=== PATIENT | female | born 1980 | race African-American/Black ===

== ENCOUNTER 2019-04-18 17:32 | Inpatient (IN) ==
[2019-04-18] MEDS ORDERED: SODIUM CHLORIDE 0.9% 1,000 ML IV STA ×2 (18:54→18:57)
[2019-04-18] MEDS ORDERED: INSULIN REGULAR 100 UNIT/ML IV STA (18:57)
[2019-04-18] MEDS ORDERED: INSULIN REGULAR DRIP 100 ML IV PRN (18:58)
[2019-04-18 19:13] LABS: Basophils # 0.2 10*3/uL (0.0-0.2); Basophils % 1.2 % (0.0-0.8); Hemoglobin 15.2 GM/DL (12.0-16.0); Immature Granulocytes % 7.6 %; Immature Granulocytes Absolute 1.55 #; Lymphocytes # 2.9 10*3/uL (1.4-4.0); Mean Corpuscular HGB Conc 31.7 GM/DL (32-36); NRBC # 0.03 10*3/uL; Neutrophils % 68.2 % (38.7-73.9); Platelet Count 383 T/CUMM (130-400); Red Blood Count 4.85 MC/CUMM (3.8-5.5); Red Cell Distribution Width 11.9 % (9.3-17.3); White Blood Count 20.4 T/CUMM (4-12)
[2019-04-18 19:33] LABS: Band Neutrophils 2 % (0-10); Lymphocytes 14 % (20-55); Platelet Estimate Normal; Segmented Neutrophils 75 % (50-85); Total Cells Counted 100
[2019-04-18 19:42] LABS: Albumin 3.9 G/DL (3.4-5.0); Bilirubin,Total 0.9 MG/DL (0.2-1.0); Calcium 8.4 MG/DL (8.5-10.1); Osmolality,Calculated 278.7 MOS/KG (273-304); Total Protein 8.7 G/DL (6.4-8.3)
[2019-04-18] MEDS ORDERED: CEFEPIME 2,000 MG in SODIUM CHLORIDE 0.9% 100 ML IV STA (19:42)
[2019-04-18] MEDS ORDERED: VANCOMYCIN INJ 1,000 MG in SODIUM CHLORIDE 0.9% 250 ML IV STA (19:43)
[2019-04-18] MEDS ORDERED: hydrALAZINE 20 MG/1 ML VIAL IV PRN (19:56)
[2019-04-18] MEDS ORDERED: SODIUM BICARBONATE 50 MEQ/50 ML VIAL IV STA (19:59)
[2019-04-18 20:21] LABS: VBG Oxygen Saturation 94.7 %; VBG PO2 99.5 MMHG (17-40)
[2019-04-18 20:22] LABS: VBG Base Excess -34.5 MEQ/L (0-4); VBG HCO3 4.6 MEQ/L (24-28); VBG PH 6.78
[2019-04-18] MEDS ORDERED: SODIUM BICARBONATE 10 MEQ/10 ML SYRINGE IV ONE (20:37)
[2019-04-18] MEDS ORDERED: CEFEPIME 2,000 MG VIAL ONE (20:44)
[2019-04-18 20:45] LABS: Apearance,Urine Slightly Hazy (Clear); Bacteria,Urine Occasional /HPF (Few); Bilirubin,Urine Negative (Negative); Blood, Urine Moderate mg/dL (Negative); Glucose,Urine (UA) >=500 mg/dL (Negative); Ketones,Urine 80 mg/dL (Negative); Mucus,Urine Occasional /LPF (Occasional); Nitrite,Urine Negative (Negative); Protein,Urine 100 MG/DL; RBC,Urine 2 /HPF (0-4); Squamous Epithelial Cell,Urine Occasional /HPF (0-10); Urine Color Straw (Yellow); Urine Specific Gravity 1.017 (1.001-1.035); Urine Urobilinogen < 2.0 EU/DL (0.2-1.0); WBC,Urine 3 /HPF (0-6)
[2019-04-18] MEDS ORDERED: SODIUM CHLORIDE 0.9% 100 ML IV ONE (20:45)
[2019-04-18] MEDS ORDERED: MAGNESIUM SULF RIDER 4 GM in PREMIX 1 EACH IV PRN (21:01)
[2019-04-18] MEDS ORDERED: SODIUM CHLORIDE 0.9% IV PRN (21:01)
[2019-04-18] MEDS ORDERED: SODIUM CHLORIDE 0.9% 1,000 ML IV ONE (21:01)
[2019-04-18] MEDS ORDERED: DEXTROSE 50% 25 GM/50 ML VIAL IV PRN ×2 (21:01)
[2019-04-18] MEDS ORDERED: SODIUM PHOSPHATE IV PRN (21:01)
[2019-04-18] MEDS ORDERED: SODIUM BICARB INJ 100 MEQ in STERILE WATER INJ 400 ML IV PRN (21:01)
[2019-04-18 21:02] LABS: Barbiturates Screen,Urine Negative (Negative); Benzodiazepines Screen,Urine Negative (Negative); Cannabinoid Screen,Urine Negative (Negative); Opiate Screen,Urine Negative (Negative); Phencyclidine Screen,Urine Negative (Negative)
[2019-04-18] MEDS: INSULIN REGULAR DRIP 100 ML IV SCH (21:28)
[2019-04-18] MEDS: cefTRIAXone 1,000 MG in SYRINGE 1 EACH IV SCH (21:40)
[2019-04-18 21:42] LABS: Allen Test Positive; Pt O2 Delivery Device Room Air
[2019-04-18 21:47] LABS: ABG HCO3 1.5 MMOL/L (20-26); ABG Oxygen Saturation 98.8 % (95-100); ABG PO2 161.6 MM HG (80-95); ABG TCO2 1.8 MMOL/L (23-27)
[2019-04-18 21:48] LABS: ABG Base Excess -32.4 MMOL/L (-2.5-2.5)
[2019-04-18 21:52] LABS: ABG PCO2 10.7 MM HG (35-48); ABG PH 6.884 (7.35-7.45)
[2019-04-18] MEDS: ENOXAPARIN 40 MG/0.4 ML SYRINGE SUBCUT SCH (21:55)
[2019-04-18] MEDS ORDERED: DEXTROSE 5% NACL 0.9% 1,000 ML IV SCH (22:35)
[2019-04-18] MEDS ORDERED: SODIUM BICARBONATE 50 MEQ/50 ML VIAL IV ONE (22:46)
[2019-04-18 23:21] LABS: Allen Test Positive; Pt O2 Delivery Device Room Air
[2019-04-18 23:22] LABS: ABG Base Excess -26.5 MMOL/L (-2.5-2.5); ABG HCO3 2.5 MMOL/L (20-26); ABG Oxygen Saturation 98.5 % (95-100); ABG TCO2 2.8 MMOL/L (23-27)
[2019-04-18 23:28] LABS: ABG PCO2 9.8 MM HG (35-48); ABG PH 7.018 (7.35-7.45)
[2019-04-18 23:37] LABS: Basophils # 0.2 10*3/uL (0.0-0.2); Basophils % 0.8 % (0.0-0.8); Eosinophils % 0.1 % (0.00-10.9); Hematocrit 40.7 VOL% (35.7-47.0); Hemoglobin 12.9 GM/DL (12.0-16.0); Immature Granulocytes % 8.1 %; Immature Granulocytes Absolute 1.63 #; Lymphocytes # 2.2 10*3/uL (1.4-4.0); Lymphocytes % 10.8 % (21.3-54.2); Mean Corpuscular HGB Conc 31.7 GM/DL (32-36); Mean Corpuscular Volume 97.4 FL (87-102); Mean Platelet Volume 10.7 FL (9.6-12.0); Monocytes % 10.3 % (1.7-12.7); NRBC # 0.03 10*3/uL; Neutrophils % 69.9 % (38.7-73.9); Platelet Count 301 T/CUMM (130-400); Red Blood Count 4.18 MC/CUMM (3.8-5.5); Red Cell Distribution Width 11.9 % (9.3-17.3); White Blood Count 20.2 T/CUMM (4-12)
[2019-04-18 23:49] LABS: Calcium 7.2 MG/DL (8.5-10.1)
[2019-04-19] MEDS: SODIUM CHLORIDE 0.9% 1,000 ML IV SCH ×2 (00:08→02:08)
[2019-04-19] MEDS ORDERED: DEXTROSE 5% NACL 0.9% 1,000 ML IV SCH (00:35)
[2019-04-19] MEDS ORDERED: SODIUM CHLORIDE 0.9% 1,000 ML IV SCH (00:39)
[2019-04-19 01:08] LABS: ABG Base Excess -28.4 MMOL/L (-2.5-2.5); ABG HCO3 6.3 MMOL/L (20-26); ABG Oxygen Saturation 98.5 % (95-100); Allen Test Positive; Pt O2 Delivery Device Room Air
[2019-04-19 01:10] LABS: ABG TCO2 12.1 MMOL/L (23-27)
[2019-04-19 01:12] LABS: ABG PCO2 12.1 MM HG (35-48); ABG PH 7.013 (7.35-7.45)
[2019-04-19 01:16] LABS: Calcium 7.3 MG/DL (8.5-10.1); Osmolality,Calculated 293.7 MOS/KG (273-304)
[2019-04-19] MEDS: POTASSIUM CHLORIDE RIDER 10 MEQ in PREMIX 1 EACH IV PRN ×6 (02:13→18:20)
[2019-04-19 02:56] LABS: Band Neutrophils 4 % (0-10); Lymphocytes 9 % (20-55); Metamyelocytes 3 %; Myelocytes 2 %; Segmented Neutrophils 74 % (50-85); Total Cells Counted 100
[2019-04-19 02:57] LABS: Platelet Estimate Normal
[2019-04-19 05:17] LABS: Basophils # 0.1 10*3/uL (0.0-0.2); Basophils % 0.5 % (0.0-0.8); Hematocrit 39.2 VOL% (35.7-47.0); Hemoglobin 12.8 GM/DL (12.0-16.0); Immature Granulocytes % 5.1 %; Immature Granulocytes Absolute 0.92 #; Lymphocytes # 1.7 10*3/uL (1.4-4.0); Lymphocytes % 9.6 % (21.3-54.2); Mean Corpuscular HGB Conc 32.7 GM/DL (32-36); Mean Corpuscular Volume 95.1 FL (87-102); Mean Platelet Volume 10.4 FL (9.6-12.0); Monocytes % 11.6 % (1.7-12.7); NRBC # 0.02 10*3/uL; Neutrophils % 73.2 % (38.7-73.9); Platelet Count 278 T/CUMM (130-400); Red Blood Count 4.12 MC/CUMM (3.8-5.5); Red Cell Distribution Width 11.9 % (9.3-17.3); White Blood Count 18.1 T/CUMM (4-12)
[2019-04-19 05:51] LABS: Band Neutrophils 6 % (0-10); Lymphocytes 13 % (20-55); Risk Ratio 5.28; Segmented Neutrophils 79 % (50-85); Total Cells Counted 100; VLDL CHOLESTEROL 58.4 MG/DL
[2019-04-19 05:52] LABS: Polychromasia Slight
[2019-04-19 05:54] LABS: Microcytosis Slight
[2019-04-19 06:45] LABS: Calcium 7.3 MG/DL (8.5-10.1); Osmolality,Calculated 288.4 MOS/KG (273-304)
[2019-04-19] MEDS: DEXT 5% NACL 0.45% KCL 20 MEQ 20 MEQ/1,000 ML BAG IV SCH ×2 (07:21→11:08)
[2019-04-19 09:49] LABS: Calcium 7.7 MG/DL (8.5-10.1); Osmolality,Calculated 293.1 MOS/KG (273-304)
[2019-04-19] MEDS ORDERED: INSULIN REGULAR 100 UNIT/ML ONE (09:50)
[2019-04-19] MEDS: INSULIN REGULAR DRIP 100 ML IV SCH ×3 (09:56→21:03)
[2019-04-19] MEDS: MAGNESIUM SULF RIDER 2 GM in PREMIX 1 EACH IV PRN (10:27)
[2019-04-19] MEDS ORDERED: SODIUM BICARBONATE 50 MEQ/50 ML VIAL IV ONE (10:30)
[2019-04-19] MEDS ORDERED: ONDANSETRON 4 MG/2 ML VIAL ONE (10:33)
[2019-04-19] MEDS: ONDANSETRON 4 MG/2 ML VIAL IV PRN (10:50)
[2019-04-19] MEDS ORDERED: POTASSIUM PHOSPHATE 30 MMOL in SODIUM CHLORIDE 0.9% 250 ML IV ONE (12:00)
[2019-04-19] MEDS ORDERED: SODIUM CHLORIDE 0.45% 1,000 ML IV SCH (12:39)
[2019-04-19 13:50] LABS: Calcium 7.8 MG/DL (8.5-10.1); Osmolality,Calculated 292.1 MOS/KG (273-304)
[2019-04-19] MEDS: SODIUM BICARB INJ 100 MEQ in DEXTROSE 5% 1,000 ML IV SCH ×2 (14:03→22:50)
[2019-04-19] MEDS ORDERED: PROMETHAZINE INJ 25 MG in SODIUM CHLORIDE 0.9% 50 ML IV PRN (15:56)
[2019-04-19] MEDS: cefTRIAXone 1,000 MG in SYRINGE 1 EACH IV SCH (21:46)
[2019-04-19] MEDS: ENOXAPARIN 40 MG/0.4 ML SYRINGE SUBCUT SCH (21:48)
[2019-04-19] MEDS ORDERED: POTASSIUM CHLORIDE INJ 30 MEQ in SODIUM CHLORIDE 0.9% 285 ML IV PRN (22:00)
[2019-04-19 22:41] LABS: Calcium 8.2 MG/DL (8.5-10.1); Osmolality,Calculated 293.7 MOS/KG (273-304)
[2019-04-19 23:23] LABS: Apearance,Urine CLOUDY (Clear); Bilirubin,Urine Negative (Negative); Blood, Urine Moderate mg/dL (Negative); Glucose,Urine (UA) 50 mg/dL (Negative); Granular Casts,Urine 14 /LPF (0-1); Ketones,Urine 20 mg/dL (Negative); Mucus,Urine Occasional /LPF (Occasional); Nitrite,Urine Negative (Negative); Protein,Urine 30 MG/DL; RBC,Urine 10 /HPF (0-4); Squamous Epithelial Cell,Urine Occasional /HPF (0-10); Urine Color Yellow (Yellow); Urine Specific Gravity 1.009 (1.001-1.035); Urine Urobilinogen < 2.0 EU/DL (0.2-1.0); WBC,Urine 4 /HPF (0-6)
[2019-04-20 01:29] LABS: Calcium 8.1 MG/DL (8.5-10.1); Osmolality,Calculated 294.8 MOS/KG (273-304)
[2019-04-20] MEDS ORDERED: POTASSIUM CHLORIDE INJ 40 MEQ in SODIUM CHLORIDE 0.9% 380 ML IV PRN (02:45)
[2019-04-20] MEDS: SODIUM BICARB INJ 100 MEQ in DEXTROSE 5% 1,000 ML IV SCH ×3 (02:53→14:28)
[2019-04-20] MEDS: INSULIN REGULAR DRIP 100 ML IV SCH ×3 (03:37→23:38)
[2019-04-20 05:38] LABS: Basophils % 0.2 % (0.0-0.8); Eosinophils # 0.1 10*3/uL (0.0-0.87); Eosinophils % 1.1 % (0.00-10.9); Hematocrit 30.6 VOL% (35.7-47.0); Hemoglobin 10.9 GM/DL (12.0-16.0); Immature Granulocytes % 1.4 %; Immature Granulocytes Absolute 0.11 #; Lymphocytes # 0.9 10*3/uL (1.4-4.0); Lymphocytes % 11.1 % (21.3-54.2); Mean Corpuscular HGB Conc 35.6 GM/DL (32-36); Mean Corpuscular Volume 87.9 FL (87-102); Mean Platelet Volume 10.6 FL (9.6-12.0); Monocytes % 16.2 % (1.7-12.7); Platelet Count 246 T/CUMM (130-400); Red Blood Count 3.48 MC/CUMM (3.8-5.5); Red Cell Distribution Width 12.3 % (9.3-17.3); White Blood Count 8.1 T/CUMM (4-12)
[2019-04-20 06:01] LABS: Calcium 8.2 MG/DL (8.5-10.1); Osmolality,Calculated 295.7 MOS/KG (273-304)
[2019-04-20 07:26] LABS: Eosinophils 1 % (0-10); Lymphocytes 12 % (20-55); Metamyelocytes 1 %; Microcytosis 1+; Segmented Neutrophils 79 % (50-85); Total Cells Counted 100
[2019-04-20 07:27] LABS: Hypochromasia 1+; Target Cells Slight; Tear Drop Cells Slight
[2019-04-20 07:28] LABS: Ovalocytes Slight; Platelet Estimate Normal
[2019-04-20 10:16] LABS: Calcium 8.1 MG/DL (8.5-10.1); Osmolality,Calculated 298.8 MOS/KG (273-304)
[2019-04-20] MEDS: POTASSIUM CHLORIDE RIDER 10 MEQ in PREMIX 1 EACH IV PRN ×4 (12:03→15:40)
[2019-04-20 14:08] LABS: Calcium 8.1 MG/DL (8.5-10.1); Osmolality,Calculated 298.3 MOS/KG (273-304)
[2019-04-20 16:43] LABS: Creatinine,Urine Random 43 MG/DL; Total Protein,Urine Random 44 MG/DL; Urea Nitrogen, Urine Random 223 MG/DL
[2019-04-20] MEDS: SODIUM BICARB INJ 100 MEQ, POTASSIUM CHLORIDE INJ 20 MEQ in DEXTROSE 5% 1,000 ML IV SCH (17:18)
[2019-04-20 18:21] LABS: Calcium 8.1 MG/DL (8.5-10.1); Osmolality,Calculated 297.1 MOS/KG (273-304)
[2019-04-20] MEDS: ENOXAPARIN 40 MG/0.4 ML SYRINGE SUBCUT SCH ×2 (19:50→21:27)
[2019-04-20] MEDS: cefTRIAXone 1,000 MG in SYRINGE 1 EACH IV SCH (21:30)
[2019-04-20] MEDS ORDERED: GLUCAGON 1 MG VIAL IM PRN (22:20)
[2019-04-20] MEDS: ACETAMINOPHEN 325 MG TABLET PO PRN (23:44)
[2019-04-21] MEDS: SODIUM BICARB INJ 100 MEQ, POTASSIUM CHLORIDE INJ 20 MEQ in DEXTROSE 5% 1,000 ML IV SCH ×2 (04:30→05:02)
[2019-04-21 04:35] LABS: Basophils % 0.3 % (0.0-0.8); Eosinophils # 0.2 10*3/uL (0.0-0.87); Eosinophils % 3.3 % (0.00-10.9); Hematocrit 26.4 VOL% (35.7-47.0); Hemoglobin 9.3 GM/DL (12.0-16.0); Immature Granulocytes % 0.6 %; Immature Granulocytes Absolute 0.04 #; Lymphocytes # 1.5 10*3/uL (1.4-4.0); Lymphocytes % 23.5 % (21.3-54.2); Mean Corpuscular HGB Conc 35.2 GM/DL (32-36); Mean Platelet Volume 10.7 FL (9.6-12.0); NRBC # 0.02 10*3/uL; Neutrophils % 55.3 % (38.7-73.9); Platelet Count 253 T/CUMM (130-400); Red Cell Distribution Width 12.6 % (9.3-17.3); White Blood Count 6.4 T/CUMM (4-12)
[2019-04-21 04:59] LABS: Albumin 2.4 G/DL (3.4-5.0); Calcium 8.4 MG/DL (8.5-10.1); Osmolality,Calculated 297.6 MOS/KG (273-304)
[2019-04-21 05:26] LABS: Eosinophils 7 % (0-10); Lymphocytes 17 % (20-55); Microcytosis Slight; Platelet Estimate Normal; Segmented Neutrophils 63 % (50-85); Total Cells Counted 100
[2019-04-21 05:27] LABS: Atypical Lymphocytes Few
[2019-04-21] MEDS: POTASSIUM CHLORIDE RIDER 10 MEQ in PREMIX 1 EACH IV PRN ×4 (06:00→10:00)
[2019-04-21] MEDS: ONDANSETRON 4 MG/2 ML VIAL IV PRN ×3 (06:15→22:58)
[2019-04-21] MEDS: MAGNESIUM SULF RIDER 2 GM in PREMIX 1 EACH IV PRN (06:43)
[2019-04-21] MEDS ORDERED: POTASSIUM CHLORIDE 20 MEQ TABLET PO STA (08:57)
[2019-04-21 09:26] LABS: Calcium 8.4 MG/DL (8.5-10.1); Osmolality,Calculated 293.1 MOS/KG (273-304)
[2019-04-21] MEDS: SODIUM CHLORIDE 0.45% 1,000 ML IV SCH ×2 (10:38→22:58)
[2019-04-21] MEDS: INSULIN NPH/REGULAR 70/30 100 UNIT/ML SUBCUT SCH ×2 (11:00→16:33)
[2019-04-21] MEDS ORDERED: INSULIN LISPRO 100 UNIT/ML SUBCUT SCH (11:30)
[2019-04-21] MEDS ORDERED: POTASSIUM CHLORIDE 20 MEQ TABLET PO ONE (12:00)
[2019-04-21] MEDS: ACETAMINOPHEN 325 MG TABLET PO PRN ×2 (13:09→22:48)
[2019-04-21 15:50] LABS: Calcium 8.6 MG/DL (8.5-10.1); Osmolality,Calculated 293.4 MOS/KG (273-304)
[2019-04-21] MEDS: INSULIN LISPRO 100 UNIT/ML SUBCUT SCH (16:33)
[2019-04-21] MEDS: ENOXAPARIN 40 MG/0.4 ML SYRINGE SUBCUT SCH (22:49)
[2019-04-21] MEDS: cefTRIAXone 1,000 MG in SYRINGE 1 EACH IV SCH (23:04)
[2019-04-22] MEDS: INSULIN LISPRO 100 UNIT/ML SUBCUT SCH ×7 (00:40→21:19)
[2019-04-22 05:50] LABS: Basophils % 0.5 % (0.0-0.8); Eosinophils # 0.2 10*3/uL (0.0-0.87); Eosinophils % 3.4 % (0.00-10.9); Hematocrit 26.4 VOL% (35.7-47.0); Hemoglobin 9.2 GM/DL (12.0-16.0); Immature Granulocytes % 0.7 %; Immature Granulocytes Absolute 0.03 #; Lymphocytes # 1.6 10*3/uL (1.4-4.0); Lymphocytes % 35.6 % (21.3-54.2); Mean Corpuscular HGB Conc 34.8 GM/DL (32-36); Mean Corpuscular Volume 89.5 FL (87-102); Mean Platelet Volume 10.8 FL (9.6-12.0); Monocytes % 20.3 % (1.7-12.7); Neutrophils % 39.5 % (38.7-73.9); Platelet Count 268 T/CUMM (130-400); Red Blood Count 2.95 MC/CUMM (3.8-5.5); Red Cell Distribution Width 13.1 % (9.3-17.3); White Blood Count 4.4 T/CUMM (4-12)
[2019-04-22 06:33] LABS: Albumin 2.5 G/DL (3.4-5.0); Calcium 8.5 MG/DL (8.5-10.1); Osmolality,Calculated 294.1 MOS/KG (273-304)
[2019-04-22 06:47] LABS: Band Neutrophils 6 % (0-10); Eosinophils 3 % (0-10); Lymphocytes 39 % (20-55); Platelet Estimate Adequate; Segmented Neutrophils 43 % (50-85); Total Cells Counted 100
[2019-04-22] MEDS: INSULIN NPH/REGULAR 70/30 100 UNIT/ML SUBCUT SCH ×2 (08:28→16:34)
[2019-04-22] MEDS: SODIUM CHLORIDE 0.45% 1,000 ML IV SCH ×3 (08:29→16:35)
[2019-04-22] MEDS: ONDANSETRON 4 MG/2 ML VIAL IV PRN (13:19)
[2019-04-22] MEDS: ENOXAPARIN 40 MG/0.4 ML SYRINGE SUBCUT SCH (21:15)
[2019-04-22] MEDS: cefTRIAXone 1,000 MG in SYRINGE 1 EACH IV SCH (21:15)
[2019-04-23] MEDS: INSULIN LISPRO 100 UNIT/ML SUBCUT SCH ×6 (00:58→22:00)
[2019-04-23] MEDS: SODIUM CHLORIDE 0.45% 1,000 ML IV SCH ×3 (00:58→16:35)
[2019-04-23 05:26] LABS: Basophils % 0.2 % (0.0-0.8); Eosinophils # 0.1 10*3/uL (0.0-0.87); Eosinophils % 3.3 % (0.00-10.9); Hemoglobin 8.3 GM/DL (12.0-16.0); Immature Granulocytes % 0.7 %; Immature Granulocytes Absolute 0.03 #; Lymphocytes # 1.8 10*3/uL (1.4-4.0); Lymphocytes % 41.3 % (21.3-54.2); Mean Corpuscular HGB Conc 34.6 GM/DL (32-36); Mean Corpuscular Volume 90.2 FL (87-102); Mean Platelet Volume 10.8 FL (9.6-12.0); Monocytes % 19.6 % (1.7-12.7); Neutrophils % 34.9 % (38.7-73.9); Platelet Count 256 T/CUMM (130-400); Red Blood Count 2.66 MC/CUMM (3.8-5.5); Red Cell Distribution Width 13.1 % (9.3-17.3); White Blood Count 4.3 T/CUMM (4-12)
[2019-04-23 05:50] LABS: Calcium 8.5 MG/DL (8.5-10.1); Osmolality,Calculated 293.3 MOS/KG (273-304)
[2019-04-23 06:04] LABS: Albumin 2.4 G/DL (3.4-5.0); Calcium 8.7 MG/DL (8.5-10.1); Osmolality,Calculated 295.1 MOS/KG (273-304)
[2019-04-23 06:12] LABS: Anisocytosis 1+; Eosinophils 4 % (0-10); Lymphocytes 40 % (20-55); Segmented Neutrophils 36 % (50-85); Total Cells Counted 100
[2019-04-23 06:13] LABS: Hypochromasia Slight; Microcytosis Slight; Platelet Estimate Adequate
[2019-04-23] MEDS: POTASSIUM CHLORIDE RIDER 10 MEQ in PREMIX 1 EACH IV PRN ×3 (08:41→14:55)
[2019-04-23] MEDS: INSULIN NPH/REGULAR 70/30 100 UNIT/ML SUBCUT SCH ×2 (08:41→17:21)
[2019-04-23] MEDS: ENOXAPARIN 40 MG/0.4 ML SYRINGE SUBCUT SCH (22:00)
[2019-04-23] MEDS: cefTRIAXone 1,000 MG in SYRINGE 1 EACH IV SCH (22:01)
[2019-04-23] MEDS: ACETAMINOPHEN 325 MG TABLET PO PRN (22:09)
[2019-04-24] MEDS: SODIUM CHLORIDE 0.45% 1,000 ML IV SCH ×4 (00:43→17:49)
[2019-04-24] MEDS: INSULIN LISPRO 100 UNIT/ML SUBCUT SCH ×6 (00:44→21:36)
[2019-04-24] MEDS: ACETAMINOPHEN 325 MG TABLET PO PRN (05:19)
[2019-04-24 06:17] LABS: Albumin 2.3 G/DL (3.4-5.0); Calcium 8.7 MG/DL (8.5-10.1); Osmolality,Calculated 292.1 MOS/KG (273-304)
[2019-04-24] MEDS: INSULIN NPH/REGULAR 70/30 100 UNIT/ML SUBCUT SCH ×2 (09:50→17:37)
[2019-04-24] MEDS: ONDANSETRON 4 MG/2 ML VIAL IV PRN (17:37)
[2019-04-24] MEDS: ENOXAPARIN 40 MG/0.4 ML SYRINGE SUBCUT SCH (21:36)
[2019-04-24] MEDS: cefTRIAXone 1,000 MG in SYRINGE 1 EACH IV SCH (21:36)
[2019-04-25] MEDS: INSULIN LISPRO 100 UNIT/ML SUBCUT SCH ×4 (01:10→12:32)
[2019-04-25] MEDS: SODIUM CHLORIDE 0.45% 1,000 ML IV SCH ×2 (02:42→08:39)
[2019-04-25 05:29] LABS: Basophils % 0.5 % (0.0-0.8); Eosinophils # 0.2 10*3/uL (0.0-0.87); Eosinophils % 3.5 % (0.00-10.9); Hematocrit 23.4 VOL% (35.7-47.0); Hemoglobin 7.6 GM/DL (12.0-16.0); Immature Granulocytes % 1.4 %; Immature Granulocytes Absolute 0.06 #; Lymphocytes # 1.6 10*3/uL (1.4-4.0); Lymphocytes % 36.5 % (21.3-54.2); Mean Corpuscular HGB Conc 32.5 GM/DL (32-36); Mean Corpuscular Volume 94.4 FL (87-102); Mean Platelet Volume 10.2 FL (9.6-12.0); Monocytes % 18.5 % (1.7-12.7); Neutrophils % 39.6 % (38.7-73.9); Platelet Count 320 T/CUMM (130-400); Red Blood Count 2.48 MC/CUMM (3.8-5.5); Red Cell Distribution Width 13.1 % (9.3-17.3); White Blood Count 4.3 T/CUMM (4-12)
[2019-04-25 05:55] LABS: Calcium 8.6 MG/DL (8.5-10.1)
[2019-04-25 05:58] LABS: Band Neutrophils 9 % (0-10); Eosinophils 4 % (0-10); Lymphocytes 37 % (20-55); Nucleated Red Blood Cells 1 (0-5); Platelet Estimate Adequate; Segmented Neutrophils 38 % (50-85); Total Cells Counted 100
[2019-04-25] MEDS: INSULIN NPH/REGULAR 70/30 100 UNIT/ML SUBCUT SCH (08:38)
[2019-04-25 10:47] VITALS: BP 123/76
== END 2019-04-25 15:36 | disposition home or self-care (01) | DRG 638 ==
LOC: N.ED 17:32 → SUATTDRO 19:38 → N.EDINP 19:38 → N.ICU 19:50 → N.5E 04-21 11:49
PROVIDERS: ADMIT Internal Medicine; ATTEND Internal Medicine

== ENCOUNTER 2019-07-26 09:18 | Inpatient (IN) ==
[2019-07-26] MEDS ORDERED: SODIUM CHLORIDE 0.9% 1,000 ML IV STA ×2 (10:36→13:18)
[2019-07-26 11:14] LABS: ABG HCO3 7.9 MMOL/L (20-26); ABG Oxygen Saturation 98.5 % (95-100); ABG TCO2 4.1 MMOL/L (23-27)
[2019-07-26 11:17] LABS: ABG PH 7.108 (7.35-7.45)
[2019-07-26] MEDS ORDERED: INSULIN REGULAR 100 UNIT/ML IV STA (11:29)
[2019-07-26 12:00] LABS: Basophils # 0.1 10*3/uL (0.0-0.2); Eosinophils % 0.2 % (0.00-10.9); Hematocrit 44.8 VOL% (35.7-47.0); Hemoglobin 15.2 GM/DL (12.0-16.0); Immature Granulocytes % 2.7 %; Immature Granulocytes Absolute 0.22 #; Lymphocytes # 1.9 10*3/uL (1.4-4.0); Lymphocytes % 23.6 % (21.3-54.2); Mean Corpuscular HGB Conc 33.9 GM/DL (32-36); Mean Platelet Volume 10.7 FL (9.6-12.0); Neutrophils % 64.5 % (38.7-73.9); Platelet Count 422 T/CUMM (130-400); Red Blood Count 4.87 MC/CUMM (3.8-5.5); Red Cell Distribution Width 12.7 % (9.3-17.3); White Blood Count 8.2 T/CUMM (4-12)
[2019-07-26 12:11] LABS: INR 0.9; PT Patient Result 9.7 SECS (9.6-12.2); Partial Thromboplastin Time 26.2 SECS (20.8-36.0)
[2019-07-26 12:26] LABS: Troponin I < 0.015 NG/ML (0.00-0.045)
[2019-07-26 12:26] LABS: Albumin 4.5 G/DL (3.4-5.0); Bilirubin,Total 1.2 MG/DL (0.2-1.0); Calcium 9.1 MG/DL (8.5-10.1); Osmolality,Calculated 277.2 MOS/KG (273-304); Total Protein 9.8 G/DL (6.4-8.3)
[2019-07-26 12:27] LABS: Apearance,Urine CLEAR (Clear); Bacteria,Urine Occasional /HPF (Few); Bilirubin,Urine Negative (Negative); Blood, Urine Large mg/dL (Negative); Glucose,Urine (UA) >=500 mg/dL (Negative); Hyaline Casts,Urine 1 /LPF (0-3); Ketones,Urine 80 mg/dL (Negative); Mucus,Urine Occasional /LPF (Occasional); Nitrite,Urine Negative (Negative); Protein,Urine 30 MG/DL; RBC,Urine 4 /HPF (0-4); Squamous Epithelial Cell,Urine Occasional /HPF (0-10); Urine Color Straw (Yellow); Urine Specific Gravity 1.016 (1.001-1.035); Urine Urobilinogen < 2.0 EU/DL (0.2-1.0); WBC,Urine 7 /HPF (0-6)
[2019-07-26] MEDS ORDERED: DEXTROSE 10% 25 GM/250 ML BAG IV PRN ×2 (14:19)
[2019-07-26] MEDS ORDERED: SODIUM BICARB INJ 100 MEQ in STERILE WATER INJ 400 ML IV PRN (14:19)
[2019-07-26] MEDS ORDERED: ONDANSETRON 4 MG/2 ML VIAL IV PRN (14:19)
[2019-07-26] MEDS ORDERED: GLUCAGON 1 MG VIAL IM PRN (14:19)
[2019-07-26] MEDS ORDERED: SODIUM CHLORIDE 0.9% IV PRN (14:19)
[2019-07-26] MEDS ORDERED: MAGNESIUM SULF RIDER 2 GM in PREMIX 1 EACH IV PRN (14:19)
[2019-07-26] MEDS ORDERED: MAGNESIUM SULF RIDER 4 GM in PREMIX 1 EACH IV PRN (14:19)
[2019-07-26] MEDS ORDERED: ALBUTEROL 2.5 MG/3 ML NEB RESP TX PRN (14:19)
[2019-07-26] MEDS ORDERED: SODIUM PHOSPHATE IV PRN (14:19)
[2019-07-26 15:21] LABS: ABG Base Excess -23.5 MMOL/L (-2.5-2.5); ABG HCO3 8.5 MMOL/L (20-26); ABG Oxygen Saturation 98.4 % (95-100); ABG TCO2 4.7 MMOL/L (23-27); Allen Test Positive; Pt O2 Delivery Device Room Air
[2019-07-26 15:26] LABS: ABG PCO2 15.4 MM HG (35-48); ABG PH 7.132 (7.35-7.45)
[2019-07-26] MEDS: SODIUM CHLORIDE 0.9% 1,000 ML IV SCH ×3 (15:46→17:39)
[2019-07-26] MEDS: POTASSIUM CHLORIDE RIDER 10 MEQ in PREMIX 1 EACH IV PRN (18:24)
[2019-07-26] MEDS: INSULIN REGULAR DRIP 100 ML IV SCH (19:26)
[2019-07-26 20:04] LABS: Osmolality,Calculated 283.4 MOS/KG (273-304)
[2019-07-26] MEDS: DEXT 5% NACL 0.45% KCL 20 MEQ 20 MEQ/1,000 ML BAG IV SCH (21:26)
[2019-07-26 23:29] LABS: Calcium 8.2 MG/DL (8.5-10.1); Osmolality,Calculated 286.8 MOS/KG (273-304)
[2019-07-27] MEDS ORDERED: DEXT 5% NACL 0.45% KCL 40 MEQ 40 MEQ/1,000 ML BAG IV SCH (01:00)
[2019-07-27] MEDS: ACETAMINOPHEN 325 MG TABLET PO PRN (01:28)
[2019-07-27 02:08] LABS: Basophils % 0.4 % (0.0-0.8); Eosinophils % 0.6 % (0.00-10.9); Hematocrit 33.6 VOL% (35.7-47.0); Hemoglobin 11.8 GM/DL (12.0-16.0); Immature Granulocytes % 1.2 %; Immature Granulocytes Absolute 0.06 #; Lymphocytes # 1.3 10*3/uL (1.4-4.0); Lymphocytes % 25.3 % (21.3-54.2); Mean Corpuscular HGB Conc 35.1 GM/DL (32-36); Mean Corpuscular Volume 88.7 FL (87-102); Mean Platelet Volume 10.2 FL (9.6-12.0); Monocytes % 15.1 % (1.7-12.7); Neutrophils % 57.4 % (38.7-73.9); Platelet Count 323 T/CUMM (130-400); Red Blood Count 3.79 MC/CUMM (3.8-5.5); Red Cell Distribution Width 13.1 % (9.3-17.3)
[2019-07-27 02:27] LABS: Calcium 8.1 MG/DL (8.5-10.1)
[2019-07-27] MEDS: INSULIN REGULAR DRIP 100 ML IV SCH (04:21)
[2019-07-27] MEDS: SODIUM CHLORIDE 0.45% 1,000 ML IV SCH ×2 (05:47→07:25)
[2019-07-27] MEDS ORDERED: POTASSIUM CHLORIDE 20 MEQ TABLET PO ONE (07:00)
[2019-07-27] MEDS ORDERED: DEXTROSE 10% 250 ML BAG IV PRN (07:12)
[2019-07-27 08:21] LABS: Calcium 8.2 MG/DL (8.5-10.1)
[2019-07-27] MEDS: PANTOPRAZOLE 40 MG TABLET PO SCH (08:25)
[2019-07-27] MEDS: DEXT 5% NACL 0.45% KCL 20 MEQ 20 MEQ/1,000 ML BAG IV SCH (08:53)
[2019-07-27] MEDS ORDERED: POTASSIUM PHOSPHATE 30 MMOL in SODIUM CHLORIDE 0.9% 250 ML IV ONE (09:00)
[2019-07-27] MEDS: DEXT 5% NACL 0.45% KCL 40 MEQ 40 MEQ/1,000 ML BAG IV SCH ×2 (09:33→17:03)
[2019-07-27] MEDS ORDERED: MAGNESIUM SULF RIDER 4 GM in PREMIX 1 EACH IV ONE (10:00)
[2019-07-27 10:45] LABS: Osmolality,Calculated 281.5 MOS/KG (273-304)
[2019-07-27] MEDS: INSULIN NPH/REGULAR 70/30 100 UNIT/ML SUBCUT SCH (17:54)
[2019-07-27] MEDS: INSULIN REGULAR 100 UNIT/ML SUBCUT SCH (20:49)
[2019-07-27] MEDS: SODIUM CHLORIDE 0.9% 1,000 ML IV SCH (23:26)
[2019-07-28 04:28] LABS: Basophils % 0.6 % (0.0-0.8); Eosinophils # 0.1 10*3/uL (0.0-0.87); Eosinophils % 1.5 % (0.00-10.9); Hematocrit 30.9 VOL% (35.7-47.0); Hemoglobin 10.9 GM/DL (12.0-16.0); Immature Granulocytes % 0.6 %; Immature Granulocytes Absolute 0.02 #; Lymphocytes # 1.8 10*3/uL (1.4-4.0); Lymphocytes % 51.6 % (21.3-54.2); Mean Corpuscular HGB Conc 35.3 GM/DL (32-36); Mean Platelet Volume 10.3 FL (9.6-12.0); Monocytes % 15.5 % (1.7-12.7); Neutrophils % 30.2 % (38.7-73.9); Platelet Count 306 T/CUMM (130-400); Red Blood Count 3.51 MC/CUMM (3.8-5.5); Red Cell Distribution Width 12.8 % (9.3-17.3); White Blood Count 3.4 T/CUMM (4-12)
[2019-07-28 04:56] LABS: Eosinophils 2 % (0-10); Hypochromasia 1+; Lymphocytes 46 % (20-55); Nucleated Red Blood Cells 1 (0-5); Platelet Estimate Adequate; Segmented Neutrophils 38 % (50-85); Total Cells Counted 100
[2019-07-28 04:57] LABS: Atypical Lymphocytes Few
[2019-07-28 05:18] LABS: Calcium 8.3 MG/DL (8.5-10.1); Osmolality,Calculated 282.3 MOS/KG (273-304)
[2019-07-28] MEDS: POTASSIUM CHLORIDE RIDER 10 MEQ in PREMIX 1 EACH IV PRN (06:39)
[2019-07-28] MEDS: ACETAMINOPHEN 325 MG TABLET PO PRN (06:41)
[2019-07-28] MEDS: INSULIN NPH/REGULAR 70/30 100 UNIT/ML SUBCUT SCH ×2 (08:31→16:20)
[2019-07-28] MEDS: INSULIN REGULAR 100 UNIT/ML SUBCUT SCH ×4 (08:31→21:23)
[2019-07-28] MEDS: PANTOPRAZOLE 40 MG TABLET PO SCH (08:31)
[2019-07-28] MEDS ORDERED: DOCUSATE SODIUM 100 MG CAPSULE PO PRN (09:17)
[2019-07-28] MEDS ORDERED: POTASSIUM PHOSPHATE 30 MMOL in SODIUM CHLORIDE 0.9% 250 ML IV ONE (10:00)
[2019-07-28] MEDS ORDERED: INSULIN NPH/REGULAR 70/30 100 UNIT/ML SUBCUT SCH (21:00)
[2019-07-29 05:56] LABS: Basophils % 0.6 % (0.0-0.8); Eosinophils # 0.1 10*3/uL (0.0-0.87); Hematocrit 29.7 VOL% (35.7-47.0); Hemoglobin 10.5 GM/DL (12.0-16.0); Immature Granulocytes % 0.3 %; Immature Granulocytes Absolute 0.01 #; Lymphocytes # 1.9 10*3/uL (1.4-4.0); Lymphocytes % 53.5 % (21.3-54.2); Mean Corpuscular HGB Conc 35.4 GM/DL (32-36); Mean Corpuscular Volume 87.6 FL (87-102); Mean Platelet Volume 10.6 FL (9.6-12.0); Monocytes % 15.5 % (1.7-12.7); Neutrophils % 28.1 % (38.7-73.9); Platelet Count 310 T/CUMM (130-400); Red Blood Count 3.39 MC/CUMM (3.8-5.5); Red Cell Distribution Width 13.1 % (9.3-17.3); White Blood Count 3.6 T/CUMM (4-12)
[2019-07-29 06:09] LABS: Calcium 8.6 MG/DL (8.5-10.1); Osmolality,Calculated 284.8 MOS/KG (273-304)
[2019-07-29 06:19] LABS: Eosinophils 3 % (0-10); Lymphocytes 51 % (20-55); Platelet Estimate Adequate; Segmented Neutrophils 36 % (50-85); Total Cells Counted 100
[2019-07-29 06:20] LABS: Atypical Lymphocytes Few; Hypochromasia 1+
[2019-07-29] MEDS ORDERED: POTASSIUM CHLORIDE 20 MEQ TABLET PO PRN (06:23)
[2019-07-29] MEDS ORDERED: POTASSIUM PHOSPHATE 30 MMOL in SODIUM CHLORIDE 0.9% 250 ML IV ONE (07:45)
[2019-07-29] MEDS: INSULIN NPH/REGULAR 70/30 100 UNIT/ML SUBCUT SCH ×2 (08:07→17:08)
[2019-07-29] MEDS: INSULIN REGULAR 100 UNIT/ML SUBCUT SCH ×3 (08:07→17:08)
[2019-07-29] MEDS ORDERED: POTASSIUM CHLORIDE INJ 50 MEQ in SODIUM CHLORIDE 0.9% 500 ML IV ONE (09:00)
[2019-07-29] MEDS ORDERED: POTASSIUM CHLORIDE 20 MEQ PACK PO ONE (09:00)
[2019-07-29] MEDS: PANTOPRAZOLE 40 MG TABLET PO SCH (09:28)
[2019-07-29 15:21] VITALS: BP 103/70
== END 2019-07-29 17:36 | disposition home or self-care (01) | DRG 638 ==
LOC: N.ED 09:18 → N.EDINP 14:19 → N.ICU 17:01 → N.2E 07-28 15:21
PROVIDERS: ADMIT Internal Medicine; ATTEND Internal Medicine

== ENCOUNTER 2021-06-30 05:50 | Inpatient (IN) ==
[2021-06-30] MEDS ORDERED: SODIUM CHLORIDE 0.9% 1,000 ML IV STA (06:22)
[2021-06-30 06:51] LABS: ABG Base Excess -29.3 MMOL/L (-2.5-2.5); ABG HCO3 1.4 MMOL/L (20-26); ABG PO2 147.2 MM HG (80-95); ABG TCO2 1.6 MMOL/L (23-27)
[2021-06-30 06:53] LABS: ABG Oxygen Saturation 97.4 % (95-100)
[2021-06-30 06:54] LABS: ABG PH 6.932 (7.35-7.45)
[2021-06-30 06:55] LABS: ABG PCO2 8.5 MM HG (35-48)
[2021-06-30] MEDS ORDERED: INSULIN REGULAR 100 UNIT/ML IV STA (06:55)
[2021-06-30 07:07] LABS: Calcium 9.4 MG/DL (8.5-10.1); Osmolality,Calculated 287.7 MOS/KG (273-304); Potassium 4.9 MMOL/L (3.5-5.1)
[2021-06-30] MEDS ORDERED: POTASSIUM CHLORIDE RIDER 10 MEQ/100 ML PREMIX IV PRN (07:19)
[2021-06-30] MEDS ORDERED: SODIUM CHLORIDE 0.9% 1,000 ML IV ONE (07:19)
[2021-06-30] MEDS ORDERED: SODIUM BICARB INJ 100 MEQ in STERILE WATER INJ 400 ML IV PRN (07:19)
[2021-06-30] MEDS ORDERED: SODIUM PHOSPHATE INJ 21 MMOL in SODIUM CHLORIDE 0.9% 250 ML IV PRN (07:19)
[2021-06-30] MEDS ORDERED: MAGNESIUM SULF RIDER 4 GM/100 ML PREMIX IV PRN (07:19)
[2021-06-30] MEDS ORDERED: MAGNESIUM SULF RIDER 2 GM/50 ML PREMIX IV PRN (07:19)
[2021-06-30] MEDS ORDERED: DEXTROSE 50% 25 GM/50 ML VIAL IV PRN ×2 (07:19)
[2021-06-30] MEDS ORDERED: INSULIN REGULAR DRIP 100 ML IV SCH (07:30)
[2021-06-30] MEDS ORDERED: ACETAMINOPHEN 325 MG TABLET PO PRN (07:31)
[2021-06-30] MEDS ORDERED: BISACODYL 5 MG TABLET PO PRN (07:31)
[2021-06-30 07:39] LABS: Bilirubin,Urine Negative (Negative); Blood, Urine Moderate mg/dL (Negative); Glucose,Urine (UA) >=500 mg/dL (Negative); Ketones,Urine 80 mg/dL (Negative); Mucus,Urine Occasional /LPF (Occasional); Nitrite,Urine Negative (Negative); Protein,Urine 100 MG/DL; RBC,Urine 9 /HPF (0-4); Squamous Epithelial Cell,Urine Occasional /HPF (0-10); Urine Appearance CLOUDY (Clear); Urine Color Yellow (Yellow); Urine Specific Gravity 1.014 (1.001-1.035); Urine Urobilinogen < 2.0 EU/DL (0.2-1.0)
[2021-06-30 08:02] LABS: ABG Base Excess -29.1 MMOL/L (-2.5-2.5); ABG HCO3 1.6 MMOL/L (20-26); ABG Oxygen Saturation 97.6 % (95-100); ABG PO2 134.8 MM HG (80-95); ABG TCO2 1.8 MMOL/L (23-27)
[2021-06-30 08:04] LABS: ABG PCO2 7.7 MM HG (35-48); ABG PH 6.934 (7.35-7.45)
[2021-06-30 08:36] LABS: Basophils # 0.1 10*3/uL (0.0-0.2); Basophils % 0.4 % (0.0-0.8); Hematocrit 46.1 VOL% (35.7-47.0); Hemoglobin 14.1 GM/DL (12.0-16.0); Immature Granulocytes % 1.1 %; Immature Granulocytes Absolute 0.25 #; Lymphocytes # 1.5 10*3/uL (1.4-4.0); Lymphocytes % 6.5 % (21.3-54.2); Mean Corpuscular HGB Conc 30.6 GM/DL (32-36); Mean Corpuscular Volume 104.8 FL (87-102); Mean Platelet Volume 11.6 FL (9.6-12.0); Monocytes % 8.5 % (1.7-12.7); Neutrophils % 83.5 % (38.7-73.9); Platelet Count 395 T/CUMM (130-400); Red Cell Distribution Width 12.2 % (9.3-17.3); White Blood Count 22.9 T/CUMM (4-12)
[2021-06-30] MEDS: ENOXAPARIN 40 MG/0.4 ML SYRINGE SUBCUT SCH (10:24)
[2021-06-30] MEDS: PANTOPRAZOLE 40 MG VIAL IV SCH (10:24)
[2021-06-30] MEDS: cefTRIAXone 1,000 MG in SODIUM CHLORIDE 0.9% 100 ML IV SCH (10:25)
[2021-06-30] MEDS: SODIUM CHLORIDE 0.9% 1,000 ML IV SCH ×2 (10:25→12:54)
[2021-06-30 10:56] LABS: Osmolality,Calculated 285.8 MOS/KG (273-304); Potassium 5.3 MMOL/L (3.5-5.1)
[2021-06-30 11:57] LABS: ABG Oxygen Saturation 97.1 % (95-100)
[2021-06-30 12:04] LABS: ABG PCO2 9.6 MM HG (35-48)
[2021-06-30 12:05] LABS: ABG TCO2 1.8 MMOL/L (23-27)
[2021-06-30 12:10] LABS: ABG HCO3 1.6 MMOL/L (20-26)
[2021-06-30 12:11] LABS: ABG Base Excess -29.1 MMOL/L (-2.5-2.5)
[2021-06-30 12:23] LABS: Lymphocytes 5 % (20-55); Platelet Estimate Normal; Segmented Neutrophils 80 % (50-85); Total Cells Counted 100
[2021-06-30] MEDS ORDERED: SODIUM CHLORIDE 0.9% 1,000 ML IV SCH (12:30)
[2021-06-30] MEDS ORDERED: hydrALAZINE 20 MG/1 ML VIAL IV PRN (13:17)
[2021-06-30 14:05] LABS: ABG Base Excess -27.8 MMOL/L (-2.5-2.5); ABG HCO3 2.3 MMOL/L (20-26); ABG Oxygen Saturation 98.1 % (95-100); ABG PH 6.967 (7.35-7.45); ABG PO2 133.3 MM HG (80-95); ABG TCO2 2.6 MMOL/L (23-27)
[2021-06-30 14:06] LABS: ABG PCO2 10.2 MM HG (35-48)
[2021-06-30 16:07] LABS: ABG Oxygen Saturation 98.6 % (95-100); ABG TCO2 4.5 MMOL/L (23-27)
[2021-06-30 16:11] LABS: Calcium 8.7 MG/DL (8.5-10.1); Potassium 5.1 MMOL/L (3.5-5.1)
[2021-06-30 16:12] LABS: ABG PCO2 15.2 MM HG (35-48); ABG PH 7.115 (7.35-7.45)
[2021-06-30 17:34] LABS: ABG Base Excess -23.4 MMOL/L (-2.5-2.5); ABG HCO3 8.3 MMOL/L (20-26); ABG TCO2 4.4 MMOL/L (23-27)
[2021-06-30 17:36] LABS: ABG PCO2 13.7 MM HG (35-48); ABG PH 7.152 (7.35-7.45)
[2021-06-30 20:27] LABS: ABG Base Excess -24.6 MMOL/L (-2.5-2.5); ABG HCO3 7.7 MMOL/L (20-26); ABG Oxygen Saturation 97.4 % (95-100); ABG TCO2 4.4 MMOL/L (23-27)
[2021-06-30 20:32] LABS: ABG PH 7.092 (7.35-7.45)
[2021-06-30 20:33] LABS: ABG PCO2 15.5 MM HG (35-48)
[2021-06-30] MEDS: INSULIN REGULAR DRIP 100 ML IV SCH (21:50)
[2021-06-30 23:08] LABS: Calcium 8.8 MG/DL (8.5-10.1); Osmolality,Calculated 300.1 MOS/KG (273-304); Potassium 4.3 MMOL/L (3.5-5.1)
[2021-07-01] MEDS ORDERED: SODIUM CHLORIDE 0.45% 1,000 ML IV SCH (00:30)
[2021-07-01] MEDS: DEXTROSE 5% LACTATED RINGERS 1,000 ML IV SCH ×5 (01:09→15:13)
[2021-07-01] MEDS: ONDANSETRON 4 MG/2 ML VIAL IV PRN ×2 (02:10→11:39)
[2021-07-01 08:20] LABS: Basophils % 0.1 % (0.0-0.8); Hematocrit 38.4 VOL% (35.7-47.0); Hemoglobin 12.6 GM/DL (12.0-16.0); Immature Granulocytes % 1.8 %; Lymphocytes # 0.7 10*3/uL (1.4-4.0); Mean Corpuscular HGB Conc 32.8 GM/DL (32-36); Mean Platelet Volume 10.4 FL (9.6-12.0); Monocytes % 9.7 % (1.7-12.7); NRBC # 0.02 10*3/uL; Neutrophils % 84.4 % (38.7-73.9); Platelet Count 344 T/CUMM (130-400); Red Blood Count 4.04 MC/CUMM (3.8-5.5); Red Cell Distribution Width 12.6 % (9.3-17.3); White Blood Count 16.3 T/CUMM (4-12)
[2021-07-01 08:40] LABS: Lymphocytes 6 % (20-55); Segmented Neutrophils 89 % (50-85); Total Cells Counted 100
[2021-07-01 08:41] LABS: Hypochromasia Slight; Microcytosis Slight; Platelet Estimate Adequate
[2021-07-01 08:59] LABS: Albumin 2.7 G/DL (3.4-5.0); Bilirubin,Total 1.1 MG/DL (0.20-1.00); Calcium 9.1 MG/DL (8.5-10.1); Osmolality,Calculated 298.7 MOS/KG (273-304); Potassium 3.2 MMOL/L (3.5-5.1); Risk Ratio 2.34; Total Protein 7.4 G/DL (6.4-8.2)
[2021-07-01] MEDS: PANTOPRAZOLE 40 MG VIAL IV SCH (09:30)
[2021-07-01] MEDS: ENOXAPARIN 40 MG/0.4 ML SYRINGE SUBCUT SCH (09:30)
[2021-07-01] MEDS: cefTRIAXone 1,000 MG in SODIUM CHLORIDE 0.9% 100 ML IV SCH (09:35)
[2021-07-01] MEDS: INSULIN NPH/REGULAR 70/30 100 UNIT/ML SUBCUT SCH ×2 (09:48→20:19)
[2021-07-01] MEDS: POTASSIUM CHLORIDE 20 MEQ TABLET PO SCH ×4 (10:40→20:00)
[2021-07-01] MEDS: INSULIN REGULAR DRIP 100 ML IV SCH (12:25)
[2021-07-01 13:02] LABS: Calcium 9.3 MG/DL (8.5-10.1); Osmolality,Calculated 296.7 MOS/KG (273-304)
[2021-07-01] MEDS ORDERED: INSULIN LISPRO 100 UNIT/ML SUBCUT SCH (14:00)
[2021-07-01] MEDS: INSULIN LISPRO 100 UNIT/ML SUBCUT SCH ×2 (16:36→20:18)
[2021-07-01 19:08] LABS: Osmolality,Calculated 297.6 MOS/KG (273-304); Potassium 3.3 MMOL/L (3.5-5.1)
[2021-07-02] MEDS: POTASSIUM CHLORIDE 20 MEQ TABLET PO SCH ×2 (00:18→04:17)
[2021-07-02] MEDS: INSULIN LISPRO 100 UNIT/ML SUBCUT SCH ×6 (00:25→20:13)
[2021-07-02] MEDS: DEXTROSE 5% LACTATED RINGERS 1,000 ML IV SCH (04:14)
[2021-07-02] MEDS: ONDANSETRON 4 MG/2 ML VIAL IV PRN ×4 (04:17→17:18)
[2021-07-02 05:09] LABS: Calcium 9.5 MG/DL (8.5-10.1); Osmolality,Calculated 298.8 MOS/KG (273-304); Potassium 3.7 MMOL/L (3.5-5.1)
[2021-07-02] MEDS: ENOXAPARIN 40 MG/0.4 ML SYRINGE SUBCUT SCH (09:22)
[2021-07-02] MEDS: cefTRIAXone 1,000 MG in SODIUM CHLORIDE 0.9% 100 ML IV SCH (09:26)
[2021-07-02] MEDS: PANTOPRAZOLE 40 MG TABLET PO SCH (09:26)
[2021-07-02 10:44] LABS: Calcium 8.9 MG/DL (8.5-10.1); Osmolality,Calculated 297.5 MOS/KG (273-304); Potassium 3.7 MMOL/L (3.5-5.1)
[2021-07-02] MEDS: INSULIN NPH/REGULAR 70/30 100 UNIT/ML SUBCUT SCH ×3 (12:03→13:08)
[2021-07-02] MEDS: SODIUM BICARB INJ 50 MEQ in SODIUM CHLORIDE 0.45% 1,000 ML IV SCH (14:11)
[2021-07-02 14:17] LABS: ABG Base Excess -3.2 MMOL/L (-2.5-2.5); ABG HCO3 21.8 MMOL/L (20-26); ABG Oxygen Saturation 98.9 % (95-100); ABG PCO2 32.5 MM HG (35-48); ABG PH 7.411 (7.35-7.45); ABG TCO2 18.4 MMOL/L (23-27)
[2021-07-02 14:23] LABS: Calcium 9.3 MG/DL (8.5-10.1); Osmolality,Calculated 295.1 MOS/KG (273-304); Potassium 3.2 MMOL/L (3.5-5.1)
[2021-07-02] MEDS ORDERED: METOCLOPRAMIDE 10 MG/2 ML VIAL IV PRN (14:24)
[2021-07-02 15:21] LABS: Calcium 9.5 MG/DL (8.5-10.1); Osmolality,Calculated 293.1 MOS/KG (273-304); Potassium 3.1 MMOL/L (3.5-5.1)
[2021-07-02] MEDS: PROMETHAZINE INJ 12.5 MG in SODIUM CHLORIDE 0.9% 50 ML IV PRN (20:12)
[2021-07-02] MEDS: METOCLOPRAMIDE 10 MG/2 ML VIAL IV SCH (20:12)
[2021-07-03] MEDS: SODIUM BICARB INJ 50 MEQ in SODIUM CHLORIDE 0.45% 1,000 ML IV SCH ×2 (00:22→11:26)
[2021-07-03] MEDS: INSULIN LISPRO 100 UNIT/ML SUBCUT SCH ×4 (00:22→13:53)
[2021-07-03] MEDS: METOCLOPRAMIDE 10 MG/2 ML VIAL IV SCH ×3 (03:16→14:06)
[2021-07-03] MEDS: ONDANSETRON 4 MG/2 ML VIAL IV PRN (03:16)
[2021-07-03] MEDS: PROMETHAZINE INJ 12.5 MG in SODIUM CHLORIDE 0.9% 50 ML IV PRN (06:32)
[2021-07-03 06:41] LABS: Osmolality,Calculated 286.5 MOS/KG (273-304); Potassium 3.1 MMOL/L (3.5-5.1)
[2021-07-03] MEDS ORDERED: POTASSIUM CHLORIDE 20 MEQ TABLET PO PRN (06:54)
[2021-07-03] MEDS: INSULIN NPH/REGULAR 70/30 100 UNIT/ML SUBCUT SCH (09:10)
[2021-07-03] MEDS: ENOXAPARIN 40 MG/0.4 ML SYRINGE SUBCUT SCH (09:12)
[2021-07-03] MEDS: PANTOPRAZOLE 40 MG TABLET PO SCH (09:13)
[2021-07-03 09:20] LABS: Calcium 8.8 MG/DL (8.5-10.1); Osmolality,Calculated 282.1 MOS/KG (273-304); Potassium 3.2 MMOL/L (3.5-5.1)
[2021-07-03 12:08] VITALS: BP 165/73
== END 2021-07-03 15:41 | disposition home or self-care (01) | DRG 637 ==
LOC: EDBD → EDUNIT# → N.ED 05:50 → SUATTDRO 07:19 → N.EDINP 07:19 → N.ICU 07-01 10:42 → N.5E 07-01 20:44
PROVIDERS: ADMIT Internal Medicine; ATTEND Internal Medicine